=== PATIENT | male | born 1960 | race Asian ===

== ENCOUNTER 2024-05-30 10:40 | Emergency (ER) | payer OTHER, SELFPAY ==
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
[2024-05-30 11:10] VITALS: BP 128/77; PULSE 88; RESP 19; TEMP 36.6; O2SAT 98; BMI 22.7
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
--- NOTE | 2024-05-30 18:00 | PC.NURSE ---
PT WAS SEEN AND DISCHARGED FROM THE [facility] BY PROVIDER.
== END 2024-05-30 18:01 | disposition home or self-care (01) ==
PROVIDERS: Emergency Provider Emergency Medicine
DX: Z04.1 Encounter for examination and observation following transport accident (principal); M54.50 Low back pain, unspecified; M25.561 Pain in right knee; M54.2 Cervicalgia
CPT/HCPCS: 72100; 72125; 73564; 99281; 99284